=== PATIENT | male | born 1965 | race Caucasian/White ===

== ENCOUNTER 2017-02-28 09:55 | Day surgery (SDC) | payer BC ==
[2017-02-23 16:23] VITALS: BMI 30.4
[2017-02-28] MEDS ORDERED: SODIUM CHLORIDE 0.9% 500 ML IV ONE (10:21)
[2017-02-28 10:24] VITALS: TEMP 98.5
[2017-02-28] MEDS ORDERED: MIDAZOLAM 2 MG/2 ML VIAL ONE (11:15)
[2017-02-28] MEDS ORDERED: fentaNYL (PF) 50 MCG/ML 2 ML AMP ONE (11:15)
[2017-02-28] MEDS: BENZOCAINE SPRAY 100 APPLIC/CAN MUCOUS MEM ONE ×2 (11:23→11:36)
[2017-02-28] MEDS: MIDAZOLAM 2 MG/2 ML VIAL IV ONE ×4 (11:27→11:43)
[2017-02-28] MEDS ORDERED: fentaNYL (PF) 50 MCG/ML 2 ML AMP IV ONE (11:36)
[2017-02-28 12:00] VITALS: RESP 16
[2017-02-28] MEDS ORDERED: SODIUM CHLORIDE 0.9% 1,000 ML IV SCH (12:00)
--- NOTE | 2017-02-28 14:09 | P.GSCN ---
History of Present Illness Consult date: 02/28/17 Reason for Consult: Bicuspid aortic valve, recommendations for treatment. Requesting physician: Elke Amaya History of present illness: This 51-year-old gentleman whose been followed by Dr. Amaya of [facility] was brought in today for a transesophageal echocardiogram. Apparently he had an echocardiogram demonstrating bicuspid aortic valve with moderate to severe aortic stenosis. He denied any chest discomfort, orthopnea, paroxysmal nocturnal dyspnea, dyspnea on exertion, edema, palpitations, syncope , or near syncope. Dr. Amaya performed a transesophageal echocardiogram this morning. Dr. Mari from cardiothoracic surgery was consulted for treatment recommendations. Review of Systems 14 point review of systems was completed and was negative except as noted. Past Medical History Past Medical History: Hypertension, Sleep Apnea/CPAP/BIPAP Additional Past Medical History / Comment(s): STATES DOES NOT USE CPAP, STATES HX OF BICUSPID AORTIC VALVE, MURMUR History of Any Multi-Drug Resistant Organisms: None Reported Past Surgical History: Adenoidectomy, Back Surgery Additional Past Surgical History / Comment(s): YOHANA AND SCREWS IN BACK Past Anesthesia/Blood Transfusion Reactions: No Reported Reaction Smoking Status: Never smoker - Past Family History Mother Family Medical History: No Reported History Medications and Allergies Home Medications Medication Instructions Recorded Confirmed Type Aspirin [Adult Low Dose Aspirin EC] 81 mg PO DAILY 02/23/17 02/28/17 History Lisinopril [Zestril] 20 mg PO DAILY 02/23/17 02/28/17 History Allergies Allergy/AdvReac Type Severity Reaction Status Date / Time Sulfa (Sulfonamide Allergy Itching Verified 02/23/17 16:16 Antibiotics) codeine AdvReac Nausea & Verified 02/23/17 16:16 Vomiting Surgical - Exam Vital Signs Temp Pulse Resp BP Pulse Ox 98.5 F 68 16 159/88 98 02/28/17 10:22 02/28/17 10:22 02/28/17 10:22 02/28/17 10:22 02/28/17 10:22 - General well developed, well nourished, no distress - Eyes PERRL, normal ocular movement - ENT no hearing loss - Neck trachea midline - Respiratory normal expansion, normal respiratory effort, clear to auscultation - Cardiovascular Rhythm: regular Heart Sounds: normal: S1, S2 - Abdomen Abdomen: soft, non tender, bowel sounds - Genitourinary Deferred - Rectum Deferred - Integumentary no rash, no growths - Neurologic normal coordination, normal sensation - Musculoskeletal normal gait, normal posture - Psychiatric oriented to time, oriented to person, oriented to place, speech is normal, memory intact Results - Imaging Additional studies: Echocardiogram results reviewed. Assessment and Plan (1) Bicuspid aortic valve Status: Acute (2) Hypertension Status: Acute Plan: The patient was seen and examined at the bedside. Chart/diagnostics reviewed. A long discussion was had between Dr. Mari and Dr. Amaya regarding the results of the patient's transesophageal echocardiogram. At this time our recommendation would be for the patient to be started on and continue with beta maria isabel therapy and routine echocardiograms every 4 months. This was discussed with Dr. Amaya as well as the patient and his and all are in agreement. He does understand that he will need aortic valve surgery in the future.He was instructed to contact cardiology and our office if he should become symptomatic. Dr. Mari's business card was given to the patient. Thank you Dr. Amaya for this consult. We look forward to working with you in the care of your patient. Time with Patient: Greater than 30
[2017-02-28 14:55] VITALS: BP 143/77; PULSE 67
--- NOTE | 2017-03-02 20:42 | ECHOT ---
This transesophageal echocardiogram was performed to evaluate the patient's bicuspid aortic valve and aortic stenosis. Patient was given intravenous sedation with Versed and fentanyl and transesophageal echocardiogram was performed without any complications. Left ventricular chamber is normal in size with normal left ventricular systolic function. Mitral valve morphology is normal. There is minimal mitral valve prolapse noted. Left atrium is normal in size. Left atrial appendage is normal. Aortic valve is thickened and calcified and it is bicuspid. Aortic valve area was ( ) multiple planimeter examinations and average valve area was in the range of 1 to 1.1 sq cm. The peak gradient across the aortic valve is about 60 to 64 mmHg. There is mild aortic regurgitation noted. Tricuspid valve morphology is normal. Ascending aorta as well as descending thoracic aorta is normal. Interatrial septum is intact. There is no evidence of any PFO. FINAL IMPRESSION: 1. There is evidence of bicuspid calcified aortic valve. The peak gradient by transthoracic was 64 mmHg. Aortic valve area calculated by planimeter is about 1 sq cm, suggestive of severe aortic stenosis. 2. There is mild aortic regurgitation. Ascending aorta is normal. 3. Mitral and tricuspid valve morphology is normal. 4. There is no evidence of PFO. RECOMMENDATIONS: We will have a surgical evaluation of the patient. If he is considered a candidate for aortic valve replacement, then we will evaluate the patient with cardiac catheterization. This was discussed with the patient and family members. [facility] HOSPITALSingh
== END 2017-02-28 14:05 | disposition home or self-care (01) ==
LOC: CATHCVL 09:55
PROVIDERS: ATTEND Internal Medicine Cardiovascular Disease
DX: Q23.1 Congenital insufficiency of aortic valve (principal); I10 Essential (primary) hypertension; G47.30 Sleep apnea, unspecified; Z79.82 Long term (current) use of aspirin; Z79.899 Other long term (current) drug therapy; Z88.2 Allergy status to sulfonamides
CPT/HCPCS: 93312; 93320; 93325; J2250; J3010

== ENCOUNTER → 2018-01-18 | Outpatient (CLI) | payer BC ==
[2018-01-18 10:14] LABS: Blood Urea Nitrogen 21 mg/dL (9-20)
== END ==
LOC: LABWHC1 09:29
PROVIDERS: ATTEND Physical Medicine & Rehabilitation
DX: M54.5 Low back pain (principal); M47.27 Other spondylosis with radiculopathy, lumbosacral region; Z98.890 Other specified postprocedural states
CPT/HCPCS: 36415; 82565; 84520

== ENCOUNTER → 2020-04-14 | Day surgery (SDC) | payer BC ==
[2020-04-08 11:03] VITALS: BMI 32.4
[~2020-04-14] MED LIST: ALPRAZolam 0.25 MG TAB PO PRN; ALPRAZolam 0.5 MG TAB PO PRN; ASPIRIN 325 MG TAB PO STA; ATORVASTATIN 80 MG TAB PO STA; BENZOCAINE SPRAY 1 CAN TOPICAL ONE; HYDROmorphone 1 MG/ML 1 ML SYRINGE IVP ONE; IOPAMIDOL-370 100ML BTL INJ ONE; IOPAMIDOL-370 50ML BTL INJ ONE; LIDOCAINE 1% INJ 10MG/ML (20 ML MDV) ONE; LIDOCAINE 1% INJ 10MG/ML (20 ML MDV) SQ ONE; MIDAZOLAM 2 MG/2 ML VIAL IVP ONE; NITROGLYCERIN SL TABS 0.4 MG TAB SUBLINGUAL PRN; RX INFO: IV CONTRAST WAS GIVEN 1 EACH MISC MISCELLANE PRN; SODIUM CHLORIDE 0.9% 1,000 ML IV ONE; SODIUM CHLORIDE 0.9% 1,000 ML IV SCH; SODIUM CHLORIDE 0.9% 1,000 ML in EMPTY BAG 1 BAG IV ONE; fentaNYL (PF) 50 MCG/ML 2 ML AMP IVP ONE; fentaNYL (PF) 50 MCG/ML 2 ML AMP ONE
[2020-04-14 08:27] VITALS: TEMP 98.1
[2020-04-14 09:29] VITALS: RESP 12
--- NOTE | 2020-04-14 11:36 | CC ---
CARDIAC CATHETERIZATION REPORT INDICATION: Severe aortic stenosis. PROCEDURE NOTE: After obtaining informed consent, left heart catheterization, coronary angiogram and aortogram were performed via the right femoral artery using standard Abdirizak catheters. Right coronary artery was engaged using a leola catheter. FINDINGS: 1. HEMODYNAMICS: Central aortic pressure is 130/70 mm. 2. LEFT VENTRICULOGRAM: Left ventriculogram was not performed. 3. AORTOGRAM: Aortogram was performed to rule out aortic aneurysm. The ascending aorta appears prominent but I do not see any significant aneurysm. 4. FLUOROSCOPY: We see a bicuspid aortic valve that is heavily calcified. ANGIOGRAPHIC DATA: LEFT MAIN CORONARY ARTERY: Left main coronary artery is a normal-sized vessel and is free of stenosis. Divides into left anterior descending coronary artery and circumflex coronary artery. LAD and its branches are free of significant stenosis. Circumflex coronary artery shows a 30%-40% block in its proximal portion. Right coronary artery is a nondominant vessel that shows mild nonobstructive PAD. CONCLUSION: Mild to moderate nonobstructive atherosclerotic plaque involving the large circumflex coronary arteries. PLAN: The patient will be referred for aortic valve replacement. Patient received moderate conscious sedation. Total sedation time for the cardiac cath was 22 minutes. TRANSESOPHAGEAL ECHO: INDICATION: Severe aortic stenosis. PROCEDURE NOTE: After obtaining informed consent, transesophageal echocardiogram is performed in left lateral position using an Omni plane probe. Local and IV sedation were obtained using Xylocaine spray, 3 mg of Versed and 50 mcg of fentanyl. Patient tolerated the procedure well without any obvious immediate complication. Patient received moderate conscious sedation. Total sedation time was about 7 minutes. FINDINGS: 1. AORTIC VALVE: Aortic valve is a bicuspid valve that is heavily calcified with severe restriction in leaflet mobility. We could not accurately planimetry the aortic valve. The valve that is heavily calcified. There is no significant aortic regurgitation. 2. Mitral valve shows mild mitral regurgitation. Tricuspid valve appears anatomically normal. 3. Interatrial septum. There is no evidence of [id number] shunt by color-flow Doppler or [id number]-[id number] shunt by agitated saline contrast study. 4. Left ventricle has normal size and systolic function. 5. Aortic dimensions measure normally. 6. Left atrium, right atrium, right ventricle re within normal limits. CONCLUSION: 1. Bicuspid aortic valve that is heavily calcified with severe restriction in leaflet mobility consistent with a diagnosis of severe aortic stenosis. 2. Normal LV systolic function. PLAN: Patient will undergo cardiac catheterization. He will be referred for aortic valve replacement. MMODL / IJN: [id number] /
--- NOTE | 2020-04-14 11:57 | LTR ---
DATE OF SERVICE: 04/14/2020 RE: Rowdy Turner Dear Lula: I performed cardiac catheterization and transesophageal echo on Rowdy , the detailed reports are enclosed for your records. The cardiac catheterization reveals mild to moderate disease involving the large dominant circumflex coronary artery that does not require revascularization. LESIA confirmed severe aortic stenosis and patient will be referred for aortic valve replacement. The patient is going to pick and chose the surgeon and the place of surgery. Thank you for giving us the privilege to participate in the caring of this gentleman. Sincerely yours, MD DEBORA Garcia / SHIRA: [id number] /
[2020-04-14 15:49] VITALS: BP 113/69; PULSE 64
== END ==
LOC: CATHCVL 08:01
PROVIDERS: ATTEND Internal Medicine Cardiovascular Disease
DX: Q23.1 Congenital insufficiency of aortic valve (principal); I25.10 Atherosclerotic heart disease of native coronary artery without angina pectoris; I10 Essential (primary) hypertension; Z79.82 Long term (current) use of aspirin; Z79.899 Other long term (current) drug therapy; Z88.5 Allergy status to narcotic agent; Z88.2 Allergy status to sulfonamides
CPT/HCPCS: 93312; 93325; 93454; 93567; C1769 ×2; C1760; C1894; J2250; J2001; J3010; J1170; Q9967 ×2

== ENCOUNTER 2022-08-11 09:51 | Inpatient (IN) | payer BC ==
--- NOTE | 2022-08-11 10:02 | ED ---
General Adult HPI - General Chief complaint: Shortness of Breath Stated complaint: Cardiac Time Seen by Provider: 08/11/22 09:55 Source: patient, EMS, RN notes reviewed Mode of arrival: EMS Limitations: no limitations - History of Present Illness Initial comments: Patient is a pleasant 6-year-old male presenting to the emergency department by EMS with concern for dysrhythmia. Patient was pushing his car after running out of gas. Patient felt lightheaded and near syncopal. Patient did lay down or no trauma. No syncopal. Patient still has palpitations. No history of similar symptoms previously. Patient does have history of heart valve surgery, Ross procedure. No history of similar symptoms previously. - Related Data Home Medications Medication Instructions Recorded Confirmed Aspirin [Adult Low Dose Aspirin EC] 81 mg PO DAILY 02/23/17 04/14/20 lisinopriL [Zestril] 20 mg PO DAILY 02/23/17 04/14/20 Multivitamins, Thera [Multivitamin 1 tab PO DAILY 04/08/20 04/14/20 (formulary)] Performa X 1 tab PO DAILY 04/08/20 flaxseed oiL [Flaxseed Oil] 1,000 mg PO DAILY 04/08/20 04/14/20 Allergies Allergy/AdvReac Type Severity Reaction Status Date / Time Sulfa (Sulfonamide Allergy Itching Verified 08/11/22 09:59 Antibiotics) codeine AdvReac Nausea & Verified 08/11/22 09:59 Vomiting Review of Systems ROS Statement: Those systems with pertinent positive or pertinent negative responses have been documented in the HPI. ROS Other: All systems not noted in ROS Statement are negative. Constitutional: Denies: fever Eyes: Denies: eye pain ENT: Denies: ear pain Respiratory: Reports: as per HPI, dyspnea. Denies: cough Cardiovascular: Reports: as per HPI, palpitations. Denies: chest pain Endocrine: Reports: fatigue Gastrointestinal: Denies: abdominal pain Genitourinary: Denies: dysuria Musculoskeletal: Denies: back pain Skin: Denies: rash Neurological: Denies: weakness Past Medical History Past Medical History: Hypertension, Sleep Apnea/CPAP/BIPAP Additional Past Medical History / Comment(s): STATES DOES NOT USE CPAP, STATES HX OF BICUSPID AORTIC VALVE, MURMUR History of Any Multi-Drug Resistant Organisms: None Reported Past Surgical History: Adenoidectomy, Back Surgery Additional Past Surgical History / Comment(s): YOHANA AND SCREWS IN BACK Past Anesthesia/Blood Transfusion Reactions: No Reported Reaction Past Psychological History: No Psychological Hx Reported Smoking Status: Never smoker Past Alcohol Use History: None Reported Past Drug Use History: None Reported - Past Family History Mother Family Medical History: No Reported History General Exam Limitations: no limitations General appearance: alert Head exam: Present: atraumatic Eye exam: Present: normal appearance Neck exam: Present: normal inspection Respiratory exam: Present: normal lung sounds bilaterally Cardiovascular Exam: Present: tachycardia Expanded Peripheral pulses: 2+: Radial (R), Radial (L), Posterior Tibialis (R), Posterior Tibialis (L) GI/Abdominal exam: Present: soft. Absent: tenderness Extremities exam: Present: normal inspection. Absent: pedal edema, calf tenderness Neurological exam: Present: alert Psychiatric exam: Present: normal affect, normal mood Skin exam: Present: normal color Course Vital Signs 08/11/22 09:52 Temperature 97.2 F L Pulse Rate 227 H Respiratory 20 Rate Blood Pressure 122/81 O2 Sat by Pulse 99 Oximetry - Reevaluation(s) Reevaluation #1: 08/11/22 10:01 Cardiology, Dr. Monahan has been paged 08/11/22 10:23 Case was discussed with practitioner Mame with cardiology who states they will evaluate patient. Patient has converted. Patient reevaluated and states he feels much better. Repeat EKG interpreted by myself: Sinus rhythm rate 87. For screening AV block AR 220. QRS 104. QT 365. QTC 409. Left axis. Incomplete right bundle-branch block. Borderline lateral ST depression. 08/11/22 10:53 Case was discussed with Dr. Middleton, who will admit. EKG Findings - EKG Results: EKG: interpreted by ERMD EKG shows: ventricular tachycardia (Wide-complex tachycardia rate 229. Normal axis. Wide QRS complex. Nonspecific ST-T.) Medical Decision Making - Medical Decision Making Patient reevaluated. Patient doing much better. Patient and family updated. Dr. Thompson has been paged for admission, covering Dr. Joy. - Lab Data Result diagrams: 08/11/22 10:09 08/11/22 10:09 Lab Results 12/09/22 12/09/22 12/09/22 Range/Units 10:09 10:09 10:09 WBC 12.4 H (3.8-10.6) k/uL RBC 5.51 (4.30-5.90) m/uL Hgb 17.7 H (13.0-17.5) gm/dL Hct 52.2 (39.0-53.0) % MCV 94.8 (80.0-100.0) fL MCH 32.1 (25.0-35.0) pg MCHC 33.9 (31.0-37.0) g/dL RDW 11.7 (11.5-15.5) % Plt Count 188 (150-450) k/uL MPV 10.3 Sodium 137 (137-145) mmol/L Potassium 4.4 (3.5-5.1) mmol/L Chloride 102 (98-107) mmol/L Carbon Dioxide 17 L (22-30) mmol/L Anion Gap 18 mmol/L BUN 21 H (9-20) mg/dL Creatinine 1.09 (0.66-1.25) mg/dL Est GFR (CKD-EPI)AfAm 88 (>60 ml/min/1.73 sqM) Est GFR (CKD-EPI)NonAf 76 (>60 ml/min/1.73 sqM) Glucose 308 H (74-99) mg/dL Calcium 9.1 (8.4-10.2) mg/dL Magnesium 2.2 (1.6-2.3) mg/dL Total Bilirubin 1.1 (0.2-1.3) mg/dL AST 67 H (17-59) U/L ALT 58 H (4-49) U/L Alkaline Phosphatase 73 (38-126) U/L Troponin I <0.012 (0.000-0.034) ng/mL Total Protein 7.3 (6.3-8.2) g/dL Albumin 4.5 (3.5-5.0) g/dL - Radiology Data Interpreted by me: Chest x-ray shows cardiomegaly. Postoperative change. No acute process. Critical Care Time Critical Care Time: Yes Total Critical Care Time: 34 Disposition Clinical Impression: Ventricular tachycardia Disposition: ADMITTED IP TO THIS HOSP Is patient prescribed a controlled substance at d/c from ED?: No Referrals: None,Stated [REFERRING] - 1-2 days Time of Disposition: 10:50
[2022-08-11 10:17] LABS: Basophils # (A) 0.1 k/uL (0-0.2); Basophils % (A) 1 %; Eosinophils # (A) 0.4 k/uL (0-0.7); Eosinophils % (A) 3 %; HCT 52.2 % (39.0-53.0); HGB 17.7 gm/dL (13.0-17.5); Lymphocytes # (A) 5.2 k/uL (1.0-4.8); Lymphocytes % (A) 42 %; MCH 32.1 pg (25.0-35.0); MCHC 33.9 g/dL (31.0-37.0); MCV 94.8 fL (80.0-100.0); Mean Platelet Volume 10.3; Monocytes # (A) 0.7 k/uL (0-1.0); Monocytes % (A) 6 %; Neutrophils # (A) 5.7 k/uL (1.3-7.7); Neutrophils % (A) 46 %; Platelet Count 188 k/uL (150-450); RBC 5.51 m/uL (4.30-5.90); RDW 11.7 % (11.5-15.5); WBC 12.4 k/uL (3.8-10.6)
[2022-08-11] MEDS ORDERED: DEXTROSE 5% IN WATER 100 ML with AMIODARONE 150 MG IV ONE (10:20)
--- NOTE | 2022-08-11 10:26 | XR ---
EXAMINATION TYPE: XR chest 1V portable DATE OF EXAM: 08/11/2022 COMPARISON: NONE HISTORY: Dysrhythmia. TECHNIQUE: 2 AP portable frontal upright views of the chest are obtained. FINDINGS: Overlying sternal wires are seen. There is no focal air space opacity, pleural effusion, o r pneumothorax seen. The cardiac silhouette size is mildly enlarged. Overlying EKG leads are seen. The osseous structures are intact. IMPRESSION: Mild cardiomegaly without acute pulmonary process.
[2022-08-11] MEDS ORDERED: AMIODARONE 360 MG in DEXTROSE 5% IN WATER 200 ML IV ONE ×2 (10:30)
[2022-08-11 10:35] LABS: Albumin 4.5 g/dL (3.5-5.0); Calcium 9.1 mg/dL (8.4-10.2); Prothrombin Time 10.7 sec (9.0-12.0); Total Bilirubin 1.1 mg/dL (0.2-1.3); Total Protein 7.3 g/dL (6.3-8.2)
[2022-08-11 10:38] LABS: Potassium 4.4 mmol/L (3.5-5.1)
[2022-08-11 10:39] LABS: Magnesium 2.2 mg/dL (1.6-2.3)
[2022-08-11] MEDS ORDERED: ASPIRIN 81 MG PO STA (10:50)
--- NOTE | 2022-08-11 11:03 | P.CRDCN ---
History of Present Illness History of present illness: This is a 56 year old male with a past medical history of bicuspid arotic valve with severe aortic stenosis s/p Ross procedure at [facility] in 2019, mild non- obstructive cororonary artery disease with 30-40% stenosis in the left circumflex by cardiac catheterization in 2020, hypertension. He follows with Dr. Kerr, but has not followed up in 2 years. We have been consulted to see the patient for ventricular tachycardia. Patient presents emergency department secondary to near syncopal episode. He states he unfortunately ran out of gas, he was pushing the car to the corner and he had acute onset lightheadedness, shortness of breath and felt as if he may pass out. He remembers his standing over him and EMS was called. He denies loss of consciousness. Prior to this and the past 2 years after his valve replacement he has had no issues or symptoms. He is very active and has no chest pain or shortness of breath. He was brought to the ER was found to be in sustained ventricular tachycardia. He was started on IV amiodarone He was given 2 IV amiodarone boluses and started on amio drip. He converted back to sinus rhythm with HR 80s. He is alert and oriented x3, stable, no complaints at bedside. DIAGNOSTICS * EKG reveals ventricular tachycardia, HR 229, repeat EKG after conversion, sinus rhythm, first-degree AV block, heart rate 87, incomplete right bundle branch block, mild ST depression V4 through V6 * Telemetry tracings indicate sinus rhythm in the 80s at bedside. Prior to this patient was in sustained ventricular tachycardia * Chest xray mild cardiomegaly without any acute pulmonary process. * Labs pending * Current home cardiac medications include aspirin 80 mg daily, lisinopril 20 mg daily. REVIEW OF SYSTEMS At the time of my exam: CONSTITUTIONAL: Denies fever or chills. CARDIOVASCULAR: Denies chest pain, shortness of breath, orthopnea, PND or palpitations. RESPIRATORY: Denies cough. GASTROINTESTINAL: Denies abdominal pain, diarrhea, constipation, nausea or vomiting. MUSCULOSKELETAL: Denies myalgias. NEUROLOGIC: Denies numbness, tingling, headacbe or weakness. ENDOCRINE: Denies fatigue, weight change, polydipsia or polyurina. GENITOURINARY: Denies burning, hematuria or urgency with micturation. HEMATOLOGIC: Denies history of anemia or bleeding. PHYSICAL EXAMINATION Blood pressure 122/81, heart rate 85, afebrile, saturation 99% on room air CONSTITUTIONAL: No apparent distress. HEENT: Head is normocephalic. Pupils are equal, round. Sclerae anicteric. Mucous membranes of the mouth are moist. No JVD. No carotid bruit. CHEST EXAMINATION: Lungs are clear to auscultation. No chest wall tenderness is noted on palpation or with deep breathing. HEART EXAMINATION: Regular rate and rhythm. S1, S2 heard. No murmurs, gallops or rub. ABDOMEN: Soft, nontender. Positive bowel sounds. EXTREMITIES: 2+ peripheral pulses, no lower extremity edema and no calf tenderness. NEUROLOGIC EXAMINATION: Patient is awake, alert and oriented x3. ASSESSMENT Ventricular tachycardia, s/p IV amiodarone and conversion to sinus rhythm. Likely related to scare tissue from valve surgery Near syncope Hicuspid arotic valve with severe aortic stenosis s/p Ross procedure at [facility] in 2019 Mild non-obstructive cororonary artery disease with 30-40% stenosis in the left circumflex by cardiac catheterization in 2019 History of hypertension PLAN Obtain troponin, CBC, BMP Obtain 2D echocardiogram and doppler study to assess cardiac structure and function. Continue IV amiodarone Further recommendations based on clinical course Nurse practitioner note has been reviewed by physician. Signing provider agrees with the documented findings, assessment, and plan of care. Past Medical History Past Medical History: Hypertension, Sleep Apnea/CPAP/BIPAP Additional Past Medical History / Comment(s): STATES DOES NOT USE CPAP, STATES HX OF BICUSPID AORTIC VALVE, MURMUR History of Any Multi-Drug Resistant Organisms: None Reported Past Surgical History: Adenoidectomy, Back Surgery Additional Past Surgical History / Comment(s): YOHANA AND SCREWS IN BACK Past Anesthesia/Blood Transfusion Reactions: No Reported Reaction Past Psychological History: No Psychological Hx Reported Smoking Status: Never smoker Past Alcohol Use History: None Reported Past Drug Use History: None Reported - Past Family History Mother Family Medical History: No Reported History Medications and Allergies Home Medications Medication Instructions Recorded Confirmed Type Aspirin [Adult Low Dose Aspirin EC] 81 mg PO DAILY 02/23/17 04/14/20 History lisinopriL [Zestril] 20 mg PO DAILY 02/23/17 04/14/20 History Multivitamins, Thera [Multivitamin 1 tab PO DAILY 04/08/20 04/14/20 History (formulary)] Performa X 1 tab PO DAILY 04/08/20 History flaxseed oiL [Flaxseed Oil] 1,000 mg PO DAILY 04/08/20 04/14/20 History Allergies Allergy/AdvReac Type Severity Reaction Status Date / Time Sulfa (Sulfonamide Allergy Itching Verified 08/11/22 09:59 Antibiotics) codeine AdvReac Nausea & Verified 08/11/22 09:59 Vomiting Physical Exam Vitals: Vital Signs Temp Pulse Resp BP Pulse Ox 08/11/22 09:52 97.2 F L 227 H 20 122/81 99 Intake and Output 08/10/22 08/11/22 08/11/22 22:59 06:59 14:59 Other: Weight 102.058 kg Results 08/11/22 10:09 08/11/22 10:09 Current Medications Generic Name Dose Route Start Last Admin Trade Name Freq PRN Reason Stop Dose Admin Amiodarone HCl 150 mg/ 103 mls @ 618 mls/hr 08/11/22 10:20 08/11/22 10:08 Dextrose/Water IV 08/11/22 10:29 618 mls/hr .Q10M ONE Administration Amiodarone HCl 360 mg/ 200 mls @ 33.333 mls/hr 08/11/22 10:30 Dextrose/Water IV 08/11/22 16:29 .Q6H ONE 1 MG/MIN Amiodarone HCl 450 mg/ 250 mls @ 16.667 mls/hr 08/11/22 16:30 Dextrose/Water IV 08/12/22 10:29 .Q15H RASHAUN 0.5 MG/MIN Intake and Output 08/10/22 08/11/22 08/11/22 22:59 06:59 14:59 Other: Weight 102.058 kg Patient Weight 08/12/22 06:59 Weight 102.058 kg
[2022-08-11 11:05] LABS: Partial Thromboplastin Time 19.8 sec (22.0-30.0)
[2022-08-11 11:08] LABS: RBC Morphology Normal
--- NOTE | 2022-08-11 13:11 | CA ---
Transthoracic Echo Report Name: Rowdy Turner Age: 56 Gender: M : 1965 Exam Date: 08/11/2022 11:10 Exam Location: [facility] Ht (in): 72 Wt (lb): 225 Ordering Physician: Mame Lindsay Attending/Referring Phys: Pupil Personnel Services Director Marie Mullins RDCS Procedure CPT: Indications: v tach Cardiac Hx: Technical Quality: Contrast 1: Total Dose (mL): Contrast 2: Total Dose (mL): MEASUREMENTS (Male / Female) Normal Values 2D ECHO LV Diastolic Diameter PLAX 4.4 cm 4.2 - 5.9 / 3.9 - 5.3 cm LV Systolic Diameter PLAX 4.0 cm IVS Diastolic Thickness 1.3 cm 0.6 - 1.0 / 0.6 - 0.9 cm LVPW Diastolic Thickness 1.2 cm 0.6 - 1.0 / 0.6 - 0.9 cm LV Relative Wall Thickness 0.6 LA Systolic Diameter LX 3.3 cm 3.0 - 4.0 / 2.7 - 3.8 cm M-MODE Aortic Root Diameter MM 2.5 cm LA Systolic Diameter MM 3.1 cm LA Ao Ratio MM 1.2 MV E Point Septal Separation 0.3 cm DOPPLER AV Peak Velocity 105.4 cm/s AV Peak Gradient 4.4 mmHg AV Mean Velocity 78.4 cm/s AV Mean Gradient 2.7 mmHg AV Velocity Time Integral 16.6 cm AI Peak Velocity 243.0 cm/s AI Peak Gradient 23.6 mmHg AI Pressure Half Time 268.7 ms LVOT Peak Velocity 86.1 cm/s LVOT Peak Gradient 3.0 mmHg MV Area PHT 3.8 cm??? Mitral E Point Velocity 47.5 cm/s Mitral A Point Velocity 43.2 cm/s Mitral E to A Ratio 1.1 MV Deceleration Time 201.3 ms FINDINGS Left Ventricle Mildly increased septal wall thickness. Left ventricular cavity size at the upper limits of normal. Left ventricular ejection fraction is estimated 55%. Right Ventricle Normal right ventricular size and function. Right ventricular systolic pressure within normal limits. Right Atrium Normal right atrial size. Left Atrium Normal left atrial size. Mitral Valve Structurally normal mitral valve. Mild mitral regurgitation. Aortic Valve Pt had Ross procedure. aortic valve without stenosis with a peak velocity1 of m/s, peak gradient 4.4mmHg, mean gradient2.7 mmHg, mild aortic regurgitation. Tricuspid Valve Structurally normal tricuspid valve. Mild tricuspid regurgitation. Pulmonic Valve Pulmonic valve not well visualized. Mild pulmonic regurgitation. Pericardium Normal pericardium. Aorta Normal size aortic root and proximal ascending aorta. CONCLUSIONS LVH with preserved systolic function Aortic valve has been replaced with the pulmonic valve, normal function Previewed by: Dr. Jacques Lockett MD (Electronically Signed) Final Date: 11 August 2022 13:10
[2022-08-11] MEDS: AMIODARONE 450 MG in DEXTROSE 5% IN WATER 250 ML IV SCH ×2 (16:09)
--- NOTE | 2022-08-11 20:09 | P.HPIM ---
History of Present Illness H&P Date: 08/11/22 Chief Complaint: Syncope 56 year old male with a past medical history of bicuspid arotic valve with severe aortic stenosis s/[facility], mild non-obst ructive cororonary artery disease with 30-40% stenosis in the left circumflex by cardiac catheterization in 2019, hypertension. He follows with Dr. Kerr, but has not followed up in 2 years. We have been consulted to see the patient for ventricular tachycardia. Patient presents emergency department secondary to near syncopal episode. He states he unfortunately ran out of gas, he was pushing the car to the corner and he had acute onset lightheadedness, shortness of breath and felt as if he may pass out. He remembers his standing over him and EMS was called. He denies loss of consciousness. Prior to this and the past 2 years after his valve replacement he has had no issues or symptoms. He is very active and has no chest pain or shortness of breath. He was brought to the ER was found to be in sustained ventricular tachycardia. He was started on IV amiodarone He was given 2 IV amiodarone boluses and started on amio drip. He converted back to sinus rhythm with HR 80s. He is alert and oriented x3, stable, no complaints at bedside. EKG reveals ventricular tachycardia, HR 229, repeat EKG after conversion, sinus rhythm, first-degree AV block, heart rate 87, incomplete right bundle branch block, mild ST depression V4 through V6 Telemetry tracings indicate sinus rhythm in the 80s at bedside. Prior to this patient was in sustained ventricular tachycardia Chest xray mild cardiomegaly without any acute pulmonary process. Labs pending Current home cardiac medications include aspirin 80 mg daily, lisinopril 20 mg daily. Review of Systems CONSTITUTIONAL: Denies fever or chills. CARDIOVASCULAR: Denies chest pain, shortness of breath, orthopnea, PND or palpitations. RESPIRATORY: Denies cough. GASTROINTESTINAL: Denies abdominal pain, diarrhea, constipation, nausea or vomiting. MUSCULOSKELETAL: Denies myalgias. NEUROLOGIC: Denies numbness, tingling, headacbe or weakness. ENDOCRINE: Denies fatigue, weight change, polydipsia or polyurina. GENITOURINARY: Denies burning, hematuria or urgency with micturation. HEMATOLOGIC: Denies history of anemia or bleeding. Past Medical History Past Medical History: Hypertension, Sleep Apnea/CPAP/BIPAP Additional Past Medical History / Comment(s): STATES DOES NOT USE CPAP, STATES HX OF BICUSPID AORTIC VALVE, MURMUR History of Any Multi-Drug Resistant Organisms: None Reported Past Surgical History: Adenoidectomy, Back Surgery Additional Past Surgical History / Comment(s): YOHANA AND SCREWS IN BACK Past Anesthesia/Blood Transfusion Reactions: No Reported Reaction Past Psychological History: No Psychological Hx Reported Smoking Status: Never smoker Past Alcohol Use History: None Reported Past Drug Use History: None Reported - Past Family History Mother Family Medical History: No Reported History Medications and Allergies Home Medications Medication Instructions Recorded Confirmed Type flaxseed oiL [Flaxseed Oil] 1,000 mg PO DAILY 04/08/20 08/11/22 History Cholecalciferol [Vitamin D3 (25 50 mcg PO DAILY 08/11/22 08/11/22 History Mcg = 1000 Iu)] Magnesium 250 mg PO DAILY 08/11/22 08/11/22 History Potassium Gluconate [Potassium 99 mg PO DAILY 08/11/22 08/11/22 History Gluconate ER] Vitamin K2 400 mcg PO DAILY 08/11/22 08/11/22 History Zinc Gluconate [Zinc] 50 mg PO DAILY 08/11/22 08/11/22 History Allergies Allergy/AdvReac Type Severity Reaction Status Date / Time Sulfa (Sulfonamide Allergy Itching Verified 08/11/22 11:25 Antibiotics) codeine AdvReac Nausea & Verified 08/11/22 11:25 Vomiting Physical Exam Vitals: Vital Signs Temp Pulse Resp BP Pulse Ox 08/11/22 12:22 83 18 125/77 96 08/11/22 10:20 82 18 115/68 97 08/11/22 09:52 97.2 F L 227 H 20 122/81 99 Intake and Output 08/10/22 08/11/22 08/11/22 22:59 06:59 14:59 Other: Weight 102.058 kg Blood pressure 122/81, heart rate 85, afebrile, saturation 99% on room air CONSTITUTIONAL: No apparent distress. HEENT: Head is normocephalic. Pupils are equal, round. Sclerae anicteric. Mucous membranes of the mouth are moist. No JVD. No carotid bruit. CHEST EXAMINATION: Lungs are clear to auscultation. No chest wall tenderness is noted on palpation or with deep breathing. HEART EXAMINATION: Regular rate and rhythm. S1, S2 heard. No murmurs, gallops or rub. ABDOMEN: Soft, nontender. Positive bowel sounds. EXTREMITIES: 2+ peripheral pulses, no lower extremity edema and no calf tenderness. NEUROLOGIC EXAMINATION: Patient is awake, alert and oriented x3. Results CBC & Chem 7: 08/11/22 10:09 08/11/22 10:09 Labs: Abnormal Lab Results - Last 24 Hours (Table) 08/11/22 08/11/22 08/11/22 Range/Units 10:09 10:09 10:09 WBC 12.4 H (3.8-10.6) k/uL Hgb 17.7 H (13.0-17.5) gm/dL Lymphocytes # 5.2 H (1.0-4.8) k/uL APTT 19.8 L (22.0-30.0) sec Carbon Dioxide 17 L (22-30) mmol/L BUN 21 H (9-20) mg/dL Glucose 308 H (74-99) mg/dL AST 67 H (17-59) U/L ALT 58 H (4-49) U/L Troponin I (0.000-0.034) ng/mL 08/11/22 Range/Units 11:17 WBC (3.8-10.6) k/uL Hgb (13.0-17.5) gm/dL Lymphocytes # (1.0-4.8) k/uL APTT (22.0-30.0) sec Carbon Dioxide (22-30) mmol/L BUN (9-20) mg/dL Glucose (74-99) mg/dL AST (17-59) U/L ALT (4-49) U/L Troponin I 0.101 H* (0.000-0.034) ng/mL Assessment and Plan Assessment: 1. Sustained ventricular tachycardia; likely related to scar tissue from valve surgery - patient was placed on IV amiodarone bolus and infusion and converted spontaneously - Cardiology recommending to continue with IV amiodarone and monitor EKG and trend troponin and further recommendations after 2-D echocardiogram is completed 2. Hypertension; lisinopril 20 mg daily 3. Sleep apnea; patient uses CPAP at home 4. History of bicuspid aortic valve/severe aortic stenosis; status post Ross procedure in 2020 5. Coronary artery disease; history of mild nonobstructive disease with 30-40% stenosis in left circumflex artery based on cardiac catheterization completed in 2019 DVT prophylaxis; SCDs CODE STATUS; full code
[2022-08-12] MEDS: AMIODARONE 450 MG in DEXTROSE 5% IN WATER 250 ML IV SCH ×2 (06:09)
--- NOTE | 2022-08-12 06:30 | P.PN ---
Subjective Progress Note Date: 08/12/22 Principal diagnosis: Sustained ventricular tachycardia The patient is a pleasant 56-year-old gentleman with a past medical history significant for valvular heart disease where he underwent 2 years ago Ross procedure at the [facility] was admitted to the hospital with a presyncope associated with heart racing and fluttering and he was found to be in sustained ventricular tachycardia documented in the chart. He is also known to have history of cardiomyopathy and mild nonobstructive coronary artery disease. Further investigation was performed including echo which revealed preserved left ventricular systolic function with mild gradient across aortic valve and mild aortic insufficiency and mild pulmonic insufficiency August 122021 The patient was seen and evaluated this morning. He is asymptomatic. He has been maintaining sinus mechanism was no more episodes of sustained V. tach. His troponin was slightly elevated likely secondary to V. tach. Currently he is on amiodarone IV which went to switch to amiodarone by mouth. Start the patient on Toprol-XL. Consult electrophysiology for possible secondary prevention with AICD. Further recommendation to follow Objective - Vital Signs Vital signs: Vital Signs Temp 97.2 F L 08/11/22 09:52 Pulse 62 08/12/22 04:00 Resp 19 08/12/22 04:00 BP 154/83 08/12/22 04:00 Pulse Ox 97 08/12/22 04:00 FiO2 Intake & Output 08/11/22 08/11/22 08/12/22 06:59 18:59 06:59 Intake Total 233.338 Balance 233.338 Weight 102.058 kg 102.058 kg Intake: Intake, IV Titration 233.338 Amount Amiodarone 450 mg In 233.338 Dextrose 5% in Water 250 ml @ 0.5 MG/MIN 16.667 mls/hr IV .Q15H [facility] Rx#: [id number] Other: # Voids 2 - Constitutional General appearance: Present: no acute distress - Respiratory Respiratory: bilateral: CTA - Cardiovascular Rhythm: regular - Labs CBC & Chem 7: 08/11/22 10:09 08/11/22 10:09 Labs: Abnormal Lab Results - Last 24 Hours (Table) 08/11/22 08/11/22 08/11/22 Range/Units 10:09 10:09 10:09 WBC 12.4 H (3.8-10.6) k/uL Hgb 17.7 H (13.0-17.5) gm/dL Lymphocytes # 5.2 H (1.0-4.8) k/uL APTT 19.8 L (22.0-30.0) sec Carbon Dioxide 17 L (22-30) mmol/L BUN 21 H (9-20) mg/dL Glucose 308 H (74-99) mg/dL AST 67 H (17-59) U/L ALT 58 H (4-49) U/L Troponin I (0.000-0.034) ng/mL 08/11/22 08/11/22 Range/Units 11:17 15:48 WBC (3.8-10.6) k/uL Hgb (13.0-17.5) gm/dL Lymphocytes # (1.0-4.8) k/uL APTT (22.0-30.0) sec Carbon Dioxide (22-30) mmol/L BUN (9-20) mg/dL Glucose (74-99) mg/dL AST (17-59) U/L ALT (4-49) U/L Troponin I 0.101 H* 0.423 H* (0.000-0.034) ng/mL Assessment and Plan Assessment: Assessment Status post Ross procedure Systemic ventricular tachycardia Plan DC amiodarone IV and start the patient on amiodarone by mouth Start the patient on Toprol-XL Follow-up with the patient
[2022-08-12] MEDS: AMIODARONE 200 MG TAB PO SCH ×2 (08:43→19:49)
[2022-08-12] MEDS: POTASSIUM CHLORIDE ER 10 MEQ TAB.ER.PRT PO SCH (08:43)
[2022-08-12] MEDS: ASPIRIN 81 MG PO SCH (08:43)
[2022-08-12] MEDS: METOPROLOL SUCCINATE (ER) 25 MG TAB.ER.24H PO SCH (08:43)
[2022-08-12] MEDS: MAGNESIUM OXIDE 400 MG TAB PO SCH (08:43)
[2022-08-12] MEDS: ZINC SULFATE 220 MG CAP PO SCH (08:44)
[2022-08-12] MEDS: CHOLECALCIFEROL 25 MCG (1000 IU) TABLET PO SCH (08:44)
[2022-08-12 10:12] LABS: African American GFR (CKD) >90 (>60 ml/min/1.73 sqM); Anion Gap 11 mmol/L; Blood Urea Nitrogen 17 mg/dL (9-20); Calcium 9.4 mg/dL (8.4-10.2); Carbon Dioxide 22 mmol/L (22-30); Chloride 105 mmol/L (98-107); Glucose 136 mg/dL (74-99); Non-African American GFR(CKD) >90 (>60 ml/min/1.73 sqM); Potassium 4.2 mmol/L (3.5-5.1); Sodium 138 mmol/L (137-145)
[2022-08-12 16:49] LABS: Chol/HDL Ratio 5.07 Ratio; LDL Cholesterol,Calculated 146.3 mg/dL (0.0-131.0)
--- NOTE | 2022-08-13 06:39 | P.PN ---
Subjective Progress Note Date: 08/13/22 Principal diagnosis: Sustained ventricular tachycardia The patient is a pleasant 56-year-old gentleman with a past medical history significant for valvular heart disease where he underwent 2 years ago Ross procedure at the [facility] was admitted to the hospital with a presyncope associated with heart racing and fluttering and he was found to be in sustained ventricular tachycardia documented in the chart. He is also known to have history of cardiomyopathy and mild nonobstructive coronary artery disease. Further investigation was performed including echo which revealed preserved left ventricular systolic function with mild gradient across aortic valve and mild aortic insufficiency and mild pulmonic insufficiency August 122021 The patient was seen and evaluated this morning. He is asymptomatic. He has been maintaining sinus mechanism was no more episodes of sustained V. tach. His troponin was slightly elevated likely secondary to V. tach. Currently he is on amiodarone IV which went to switch to amiodarone by mouth. Start the patient on Toprol-XL. Consult electrophysiology for possible secondary prevention with AICD. Further recommendation to follow August 132021 The patient was seen and evaluated this morning. He has no more episode of ventricular tachycardia throughout his hospital stay. He is asymptomatic. He is hemodynamically stable as well. I advised the patient to stay overnight to be seen tomorrow by Dr. Lockett for further evaluation of an AICD for secondary prevention that the patient would like to go home and see him as an outpatient. He sees Dr. Kerr in the office on a regular basis [place]. Objective - Vital Signs Vital signs: Vital Signs Temp 98.7 F 08/12/22 16:19 Pulse 64 08/13/22 04:00 Resp 19 08/13/22 04:00 BP 133/67 08/13/22 04:00 Pulse Ox 99 08/13/22 04:00 FiO2 Intake & Output 08/12/22 08/12/22 08/13/22 06:59 18:59 06:59 Intake Total 233.338 340 Balance 233.338 340 Weight 102.058 kg Intake: Intake, IV Titration 233.338 0 Amount Amiodarone 360 mg In 0 Dextrose 5% in Water 200 ml @ 1 MG/MIN 33.333 mls/ hr IV .Q6H [facility] Rx#: [id number] Amiodarone 450 mg In 233.338 Dextrose 5% in Water 250 ml @ 0.5 MG/MIN 16.667 mls/hr IV .Q15H [facility] Rx#: [id number] Oral 340 Other: # Voids 2 1 - Constitutional General appearance: Present: no acute distress - Respiratory Respiratory: bilateral: CTA - Cardiovascular Rhythm: regular - Labs CBC & Chem 7: 08/11/22 10:09 12 09:22 Labs: Abnormal Lab Results - Last 24 Hours (Table) 08/12/22 Range/Units 09:22 Glucose 136 H (74-99) mg/dL Triglycerides 280.00 H (0.00-149.00) mg/dL Cholesterol 252.00 H (0.00-200.00) mg/dL LDL Cholesterol, Calc 146.3 H (0.0-131.0) mg/dL VLDL Cholesterol, Calc 56.00 H (5.00-40.00) mg/dL Assessment and Plan Assessment: Assessment Status post Ross procedure Systemic ventricular tachycardia Plan Continue the current dose of amiodarone by mouth Continue current dose of Toprol-XL The patient would like to go home and sees his catering associate and discuss the AICD as an out patient
[2022-08-13] MEDS: POTASSIUM CHLORIDE ER 10 MEQ TAB.ER.PRT PO SCH (08:59)
[2022-08-13] MEDS: ZINC SULFATE 220 MG CAP PO SCH (08:59)
[2022-08-13] MEDS: METOPROLOL SUCCINATE (ER) 25 MG TAB.ER.24H PO SCH (09:00)
[2022-08-13] MEDS: MAGNESIUM OXIDE 400 MG TAB PO SCH (09:00)
[2022-08-13] MEDS: ASPIRIN 81 MG PO SCH (09:00)
[2022-08-13] MEDS: AMIODARONE 200 MG TAB PO SCH (09:00)
[2022-08-13] MEDS: CHOLECALCIFEROL 25 MCG (1000 IU) TABLET PO SCH (09:00)
[2022-08-13 09:28] VITALS: RESP 20
[2022-08-13 11:28] VITALS: BP 156/91; PULSE 66; TEMP 98.7
--- NOTE | 2022-08-13 14:17 | P.PN ---
Subjective Progress Note Date: 08/12/22 56 year old male with a past medical history of bicuspid arotic valve with severe aortic stenosis s/[facility], mild non- obstructive cororonary artery disease with 30-40% stenosis in the left circumflex by cardiac catheterization in 2019, hypertension. He follows with Dr. Kerr, but has not followed up in 2 years. We have been consulted to see the patient for ventricular tachycardia. Patient presents emergency department secondary to near syncopal episode. He states he unfortunately ran out of gas, he was pushing the car to the corner and he had acute onset lightheadedness, shortness of breath and felt as if he may pass out. He remembers his standing over him and EMS was called. He denies loss of consciousness. Prior to this and the past 2 years after his valve replacement he has had no issues or symptoms. He is very active and has no chest pain or shortness of breath. He was brought to the ER was found to be in sustained ventricular tachycardia. He was started on IV amiodarone He was given 2 IV amiodarone boluses and started on amio drip. He converted back to sinus rhythm with HR 80s. He is alert and oriented x3, stable, no complaints at bedside. EKG reveals ventricular tachycardia, HR 229, repeat EKG after conversion, sinus rhythm, first-degree AV block, heart rate 87, incomplete right bundle branch block, mild ST depression V4 through V6 Telemetry tracings indicate sinus rhythm in the 80s at bedside. Prior to this patient was in sustained ventricular tachycardia Chest xray mild cardiomegaly without any acute pulmonary process. Labs pending Current home cardiac medications include aspirin 80 mg daily, lisinopril 20 mg daily. Objective - Vital Signs Vital signs: Vital Signs Temp 97.9 F 08/12/22 11:37 Pulse 83 08/12/22 11:37 Resp 20 08/12/22 11:37 BP 161/98 08/12/22 11:37 Pulse Ox 96 08/12/22 11:37 FiO2 Intake & Output 08/11/22 08/12/22 08/12/22 18:59 06:59 18:59 Intake Total 233.338 Balance 233.338 Weight 102.058 kg 102.058 kg Intake: Intake, IV Titration 233.338 Amount Amiodarone 450 mg In 233.338 Dextrose 5% in Water 250 ml @ 0.5 MG/MIN 16.667 mls/hr IV .Q15H [facility] Rx#: [id number] Other: # Voids 2 - Exam Blood pressure 122/81, heart rate 85, afebrile, saturation 99% on room air CONSTITUTIONAL: No apparent distress. HEENT: Head is normocephalic. Pupils are equal, round. Sclerae anicteric. Mucous membranes of the mouth are moist. No JVD. No carotid bruit. CHEST EXAMINATION: Lungs are clear to auscultation. No chest wall tenderness is noted on palpation or with deep breathing. HEART EXAMINATION: Regular rate and rhythm. S1, S2 heard. No murmurs, gallops or rub. ABDOMEN: Soft, nontender. Positive bowel sounds. EXTREMITIES: 2+ peripheral pulses, no lower extremity edema and no calf tenderness. NEUROLOGIC EXAMINATION: Patient is awake, alert and oriented x3. - Labs CBC & Chem 7: 08/11/22 10:09 08/12/22 09:22 Labs: Abnormal Lab Results - Last 24 Hours (Table) 08/11/22 08/11/22 08/12/22 Range/Units 11:17 15:48 09:22 Glucose 136 H (74-99) mg/dL Troponin I 0.101 H* 0.423 H* (0.000-0.034) ng/mL Assessment and Plan Assessment: 1. Sustained ventricular tachycardia; likely related to scar tissue from valve surgery - patient was placed on IV amiodarone bolus and infusion and converted spontaneously - Cardiology recommending to continue with IV amiodarone and monitor EKG and trend troponin and further recommendations after 2-D echocardiogram is completed 2. Hypertension; lisinopril 20 mg daily 3. Sleep apnea; patient uses CPAP at home 4. History of bicuspid aortic valve/severe aortic stenosis; status post Ross procedure in 2019 5. Coronary artery disease; history of mild nonobstructive disease with 30-40% stenosis in left circumflex artery based on cardiac catheterization completed in 2019 DVT prophylaxis; SCDs CODE STATUS; full code
--- NOTE | 2022-08-13 14:19 | P.DS ---
Providers Date of admission: 08/11/22 10:52 Expected date of discharge: 08/13/22 Attending physician: Renea Herrera Consults: 08/11/22 10:50 Consult Physician Urgent Consulting Provider: Shawn Monahan Consult Reason/Comments: v tach Do you want consulting provider notified?: Already Contacted Primary care physician: [facility] Hospital Course: 56 year old male with a past medical history of bicuspid arotic valve with severe aortic stenosis s/[facility], mild non- obstructive cororonary artery disease with 30-40% stenosis in the left circumflex by cardiac catheterization in 2019, hypertension. He follows with Dr. Kerr, but has not followed up in 2 years. We have been consulted to see the patient for ventricular tachycardia. Patient presents emergency department secondary to near syncopal episode. He states he unfortunately ran out of gas, he was pushing the car to the corner and he had acute onset lightheadedness, shortness of breath and felt as if he may pass out. He remembers his standing over him and EMS was called. He denies loss of consciousness. Prior to this and the past 2 years after his valve replacement he has had no issues or symptoms. He is very active and has no chest pain or shortness of breath. He was brought to the ER was found to be in sustained ventricular tachycardia. He was started on IV amiodarone He was given 2 IV amiodarone boluses and started on amio drip. He converted back to sinus rhythm with HR 80s. He is alert and oriented x3, stable, no complaints at bedside. EKG reveals ventricular tachycardia, HR 229, repeat EKG after conversion, sinus rhythm, first-degree AV block, heart rate 87, incomplete right bundle branch block, mild ST depression V4 through V6 Telemetry tracings indicate sinus rhythm in the 80s at bedside. Prior to this patient was in sustained ventricular tachycardia Chest xray mild cardiomegaly without any acute pulmonary process. Labs pending Current home cardiac medications include aspirin 80 mg daily, lisinopril 20 mg daily. Cardiology evaluated patient Status post Ross procedure Systemic ventricular tachycardia Plan DC amiodarone IV and start the patient on amiodarone by mouth Start the patient on Toprol-XL Patient was recommended to stay in the hospital till evaluation by EP for AICD implantation for secondary prevention; patient requesting to be discharged and will follow-up with primary environmental remediation consultant for referral to EP Plan - Discharge Summary Discharge Rx Participant: No New Discharge Prescriptions: New Metoprolol Succinate (ER) [Toprol XL] 25 mg PO DAILY 30 Days #30 tab Aspirin 81 mg PO DAILY tab Amiodarone [Cordarone] 400 mg PO BID 10 Days #20 tab Continue flaxseed oiL [Flaxseed Oil] 1,000 mg PO DAILY Zinc Gluconate [Zinc] 50 mg PO DAILY Cholecalciferol [Vitamin D3 (25 Mcg = 1000 Iu)] 50 mcg PO DAILY Vitamin K2 400 mcg PO DAILY Potassium Gluconate [Potassium Gluconate ER] 99 mg PO DAILY Magnesium 250 mg PO DAILY Discharge Medication List flaxseed oiL [Flaxseed Oil] 1,000 mg PO DAILY 04/08/20 [History] Cholecalciferol [Vitamin D3 (25 Mcg = 1000 Iu)] 50 mcg PO DAILY 08/11/22 [History] Magnesium 250 mg PO DAILY 08/11/22 [History] Potassium Gluconate [Potassium Gluconate ER] 99 mg PO DAILY 08/11/22 [History] Vitamin K2 400 mcg PO DAILY 08/11/22 [History] Zinc Gluconate [Zinc] 50 mg PO DAILY 08/11/22 [History] Amiodarone [Cordarone] 400 mg PO BID 10 Days #20 tab 08/13/22 [Rx] Aspirin 81 mg PO DAILY tab 08/13/22 [Rx] Metoprolol Succinate (ER) [Toprol XL] 25 mg PO DAILY 30 Days #30 tab 08/13/22 [Rx] Follow up Appointment(s)/Referral(s): None,Stated [REFERRING] - 1-2 days Ronni Kerr MD [STAFF PHYSICIAN] - 3 Days Discharge Disposition: HOME SELF-CARE
== END 2022-08-13 14:40 | disposition home or self-care (01) | DRG 309 ==
LOC: EC 09:51 → 3SCARD 10:52
PROVIDERS: ADMIT Hospitalist; ATTEND Hospitalist
DX: I47.20 Ventricular tachycardia, unspecified (principal); I42.9 Cardiomyopathy, unspecified; I45.10 Unspecified right bundle-branch block; I44.0 Atrioventricular block, first degree; I11.9 Hypertensive heart disease without heart failure; I25.10 Atherosclerotic heart disease of native coronary artery without angina pectoris; R77.8 Other specified abnormalities of plasma proteins; G47.30 Sleep apnea, unspecified; I35.0 Nonrheumatic aortic (valve) stenosis; Z95.2 Presence of prosthetic heart valve; Z79.899 Other long term (current) drug therapy; Z79.82 Long term (current) use of aspirin; Z88.2 Allergy status to sulfonamides; Z88.5 Allergy status to narcotic agent; Z91.199 Patient's noncompliance with other medical treatment and regimen due to unspecified reason; Z86.79 Personal history of other diseases of the circulatory system
CPT/HCPCS: 36415; 71045; 80048; 80053; 80061; 83735; 84443; 84484; 85025; 85610; 85730; 93005; 93306; 94760; 96365; 96366; 99291

== ENCOUNTER 2023-07-18 14:08 | Observation (INO) | payer BC ==
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
[2023-07-18 14:49] LABS: HCT 51.4 % (39.0-53.0); MCH 32.2 pg (25.0-35.0); MCHC 34.9 g/dL (31.0-37.0); MCV 92.3 fL (80.0-100.0); Mean Platelet Volume 9.2; Platelet Count 210 k/uL (150-450); RBC 5.57 m/uL (4.30-5.90); RDW 11.8 % (11.5-15.5); WBC 8.5 k/uL (3.8-10.6)
[2023-07-18] MEDS: MAGNESIUM SULFATE-D5W PMX 1 GM in DEXTROSE/WATER 1 100ML.BAG IVPB SCH ×2 (15:37→16:53)
--- NOTE | 2023-07-18 15:52 | XR ---
EXAMINATION TYPE: XR chest 2V DATE OF EXAM: 07/18/2023 COMPARISON: 08/11/2022 INDICATION: Lightheaded palpitations TECHNIQUE: Frontal and lateral views of the chest are obtained. FINDINGS: The heart size is normal. The pulmonary vasculature is normal. The lungs are clear. IMPRESSION: 1. No acute pulmonary process.
[2023-07-18 16:35] LABS: ALT 41 U/L (4-49); AST 35 U/L (17-59); African American GFR (CKD) >90 (>60 ml/min/1.73 sqM); Albumin 4.3 g/dL (3.5-5.0); Alkaline Phosphatase 71 U/L (38-126); Anion Gap 15 mmol/L; Blood Urea Nitrogen 15 mg/dL (9-20); Calcium 9.3 mg/dL (8.4-10.2); Carbon Dioxide 18 mmol/L (22-30); Chloride 104 mmol/L (98-107); Glucose 125 mg/dL (74-99); Magnesium 1.6 mg/dL (1.6-2.3); Non-African American GFR(CKD) >90 (>60 ml/min/1.73 sqM); Phosphorus 2.1 mg/dL (2.5-4.5); Potassium 3.7 mmol/L (3.5-5.1); Sodium 137 mmol/L (137-145); Total Bilirubin 0.8 mg/dL (0.2-1.3); Total Protein 7.1 g/dL (6.3-8.2)
[2023-07-18 16:43] LABS: NT-Pro-B-Type Natriuretic Pept 223 pg/mL
[2023-07-18] MEDS ORDERED: NALOXONE 0.4 MG/ML 1 ML VIAL IV PRN (18:26)
[2023-07-18] MEDS ORDERED: ACETAMINOPHEN TAB 325 MG TAB PO PRN (18:26)
[2023-07-18] MEDS ORDERED: METOPROLOL SUCCINATE (ER) 50 MG TAB.ER.24H PO SCH (21:00)
[2023-07-19] MEDS ORDERED: POTASSIUM CHLORIDE ER 20 MEQ TAB.ER PO STA (08:34)
[2023-07-19] MEDS: AMIODARONE 200 MG TAB PO SCH ×2 (09:00→20:59)
[2023-07-19] MEDS: METOPROLOL TARTRATE 25 MG TAB PO SCH ×3 (09:00→20:59)
[2023-07-19] MEDS: ASPIRIN 81 MG PO SCH (09:01)
[2023-07-19] MEDS: MAGNESIUM SULFATE-D5W PMX 1 GM in DEXTROSE/WATER 1 100ML.BAG IVPB SCH ×2 (09:01→10:17)
--- NOTE | 2023-07-19 11:21 | CONS ---
CONSULTATION HISTORY OF PRESENT ILLNESS: This is a 57-year-old gentleman with a bicuspid aortic valve, no significant CAD who underwent in June of 2020, a Ross procedure for bicuspid aortic valve and severe stenosis. This was performed at [facility] by Dr. Macdonald. His own pulmonary valve was switched to the aortic position and he had an allograft to the pulmonary valve. Since then, he has done well. He has not been very consistent in following up with Dr. Monahan whom he sees as a primary honey producer. However, the last visit was on July 03. He refused all medications. He was having palpitations, episodes of ventricular tachycardia. An event monitor was placed. Yesterday around 12 noon, he had recurrent episodes of palpitations, felt dizzy, lightheaded, called the EMS and came into the hospital. On the event monitor, there was a 4-beat run of PVC which was the maximum but he had several short episodes of PVCs almost in a couplet and triplet fashion. Almost all of these PVCs were symptomatic for the patient. He is here with some anxiety. He felt clammy and cold and concerned. He is hemodynamically stable, resting comfortably at the time of my evaluation. PAST MEDICAL HISTORY: 1. Bicuspid aortic valve, status post Ross procedure in 2027 at [facility]. 2. Hypertension. 3. Known history of ventricular ectopy for which he was placed on amiodarone, but he has not been, he stopped it on his own and has not been very compliant with followup, but the last visit, however, was on July 03 in the office. I reviewed the rhythm strips from the event monitor. He has only a 4-beat run of PVC but the density of PVCs isolated and the couplets were quite frequent. Apparently he had been on beta maria isabel and amiodarone and he was being tapered of the amiodarone when he started having these episodes again. This is almost 3 to 4 months. PHYSICAL EXAMINATION: VITAL SIGNS: Blood pressure is 130/70, pulse rate is 64 per minute and regular. HEENT: Unremarkable. Fundus was not examined by me. NECK: Supple. There is no JVD. I do not hear a carotid bruit. HEART: Reveals S1, S2. There is a short systolic murmur at the base and early DM at upper LSB. Second heart sound is preserved. LUNGS: Clear. ABDOMEN: Soft, nontender. EXTREMITIES: Lower extremities reveal normal pulses. No edema. CENTRAL NERVOUS SYSTEM: Normal. DIAGNOSTIC DATA: EKG revealed sinus mechanism, leftward axis, nonspecific ST abnormality. Rhythm strip review suggests isolated PVCs. The chest x-ray is unremarkable. IMPRESSION: 1. Symptomatic ventricular ectopy, short runs of nonsustained ventricular tachycardia. 2. Status post aortic valve replacement for bicuspid valve with a Ross procedure at [facility] 3 years ago. 3. Hypertension. 4. History of hyperlipidemia. RECOMMENDATIONS: I am recommending that we will place him on a combination of beta maria isabel and amiodarone that has helped him in the past and check magnesium and potassium level and supplement electrolytes. Obtain a limited echocardiogram. We will place him on amiodarone 400 mg b.i.d. for 1 week and then taper to 200 mg b.i.d., metoprolol tartrate will be 12.5 mg t.i.d. We will check at 4 p.m., his BMP and magnesium level. Discussed my thoughts in detail with the patient. We will talk to Dr. Monahan. The patient can be discharged tomorrow if his ectopy is better and he is doing well for 24 hours without significant ventricular ectopic beats. MMODL / IJN: [id number] / MTDD
--- NOTE | 2023-07-19 12:27 | P.HPIM ---
History of Present Illness H&P Date: 07/19/23 Chief Complaint: Dizziness * 57-year-old gentleman with past medical history of hypertension, previous history of ventricular tachycardia amiodarone, history of aortic stenosis bicuspid aortic valve status post Ross procedure 2019, nonocclusive coronary artery disease, hypertension with presents to the emergency department with episode of dizziness. * Patient complained of episode of palpitations ongoing for 4 weeks. Patient denies losing consciousness * Workup initiated in ER included an EKG which showed sinus rhythm with PVC * Serum chemistry obtained showed normal WBC hemoglobin of 15 platelet count of 210, sodium of 137 potassium 3.7 carbon dioxide 18 BUNs 15 creatinine 0.7 magnesium of 1.6 * Initial troponin obtained within normal limits N-terminal proBNP 223 * Patient admitted to medical floor with consultation from cardiology and echocardiogram ordered REVIEW OF SYSTEMS: Lightheadedness, dizzy CONSTITUTIONAL: No fever, no malaise, no fatigue. HEENT: No recent visual problems or hearing problems. Denied any sore throat. CARDIOVASCULAR: No chest pain, orthopnea, PND, no palpitations, no syncope. PULMONARY: No shortness of breath, no cough, no hemoptysis. GASTROINTESTINAL: No diarrhea, no nausea, no vomiting, no abdominal pain. NEUROLOGICAL: No headaches, no weakness, no numbness. HEMATOLOGICAL: Denies any bleeding or petechiae. GENITOURINARY: Denies any burning micturition, frequency, or urgency. MUSCULOSKELETAL/RHEUMATOLOGICAL: Denies any joint pain, swelling, or any muscle pain. ENDOCRINE: Denies any polyuria or polydipsia. PHYSICAL EXAMINATION: GENERAL: The patient is alert and oriented x3, not in any acute distress. Well developed, well nourished. HEENT: Pupils are round and equally reacting to light. EOMI. CARDIOVASCULAR: S1 and S2 present. No murmurs, rubs, or gallops. PULMONARY: Chest is clear to auscultation, no wheezing or crackles. ABDOMEN: Soft, nontender, nondistended, normoactive bowel sounds. No palpable organomegaly. MUSCULOSKELETAL: No joint swelling or deformity. EXTREMITIES: No cyanosis, clubbing, or pedal edema. NEUROLOGICAL: Gross neurological examination did not reveal any focal deficits. SKIN: No rashes. Past Medical History Past Medical History: Hypertension, Sleep Apnea/CPAP/BIPAP Additional Past Medical History / Comment(s): STATES DOES NOT USE CPAP, STATES HX OF BICUSPID AORTIC VALVE, MURMUR History of Any Multi-Drug Resistant Organisms: None Reported Past Surgical History: Adenoidectomy, Back Surgery Additional Past Surgical History / Comment(s): YOHANA AND SCREWS IN BACK, hernia surgery Past Anesthesia/Blood Transfusion Reactions: Postoperative Nausea & Vomiting (PONV) Past Psychological History: No Psychological Hx Reported Smoking Status: Never smoker Past Alcohol Use History: None Reported Past Drug Use History: None Reported - Past Family History Mother Family Medical History: No Reported History Medications and Allergies Home Medications Medication Instructions Recorded Confirmed Type Aspirin 81 mg PO DAILY tab 08/13/22 07/18/23 Rx Allergies Allergy/AdvReac Type Severity Reaction Status Date / Time codeine AdvReac Nausea & Verified 07/18/23 17:05 Vomiting Sulfa (Sulfonamide AdvReac Itching/Nausea Verified 07/18/23 17:05 Antibiotics) & Vomiting Physical Exam Vitals: Vital Signs Temp Pulse Pulse Resp BP BP Pulse Ox 07/19/23 07:00 98.3 F 69 18 149/78 98 07/19/23 04:00 60 16 136/75 99 07/19/23 00:00 98.5 F 07/18/23 23:00 81 18 137/76 97 07/18/23 21:00 84 18 156/78 99 07/18/23 20:00 99.9 F H 07/18/23 15:30 76 07/18/23 14:48 98.9 F 94 18 170/78 100 Results CBC & Chem 7: 07/18/23 14:40 07/18/23 16:06 Labs: Abnormal Lab Results - Last 24 Hours (Table) 07/18/23 07/18/23 Range/Units 14:40 16:06 Hgb 18.0 H (13.0-17.5) gm/dL Carbon Dioxide 18 L (22-30) mmol/L Glucose 125 H (74-99) mg/dL Phosphorus 2.1 L (2.5-4.5) mg/dL Assessment and Plan Assessment: Assessment and plan History of cardiac arrhythmia with dizziness on admission History of aortic stenosis status post ROSS procedure w bicuspid aortic valve Nonocclusive coronary artery disease Hypertension * In regards to dizziness and palpitations, cardiology consulted continue telemetry monitoring continue to monitor potassium and magnesium levels, echocardiogram ordered * In regards to history of hypertension continue patient on metoprolol * Will check for orthostatic vitals * Follow up on basic metabolic panel, optimize electrolytes potassium and magnesium * Continue telemetry monitoring * CODE STATUS is full code
--- NOTE | 2023-07-19 12:33 | CA ---
Transthoracic Echo Report Name: Rowdy Turner Age: 57 Gender: M : 1965 Exam Date: 07/19/2023 09:20 Exam Location: [facility] Ht (in): 72 Wt (lb): 215 Ordering Physician: Jami Rosa Attending/Referring Phys: Obiee Architect Sherry Paulino RDCS Procedure CPT: Indications: v. tach Cardiac Hx: Technical Quality: Fair Contrast 1: Total Dose (mL): Contrast 2: Total Dose (mL): MEASUREMENTS (Male / Female) Normal Values 2D ECHO LV Diastolic Diameter PLAX 4.8 cm 4.2 - 5.9 / 3.9 - 5.3 cm LV Systolic Diameter PLAX 3.4 cm IVS Diastolic Thickness 1.3 cm 0.6 - 1.0 / 0.6 - 0.9 cm LVPW Diastolic Thickness 1.4 cm 0.6 - 1.0 / 0.6 - 0.9 cm LV Relative Wall Thickness 0.6 RV Internal Dim ED PLAX 3.1 cm LA Volume 61.8 cm??? 18 - 58 / 22 - 52 cm??? LA Volume Index 27.5 cm???/m??? 16 - 28 cm???/m??? M-MODE Aortic Root Diameter MM 2.7 cm LA Systolic Diameter MM 4.7 cm LA Ao Ratio MM 1.7 DOPPLER AV Peak Velocity 136.4 cm/s AV Peak Gradient 7.4 mmHg AV Mean Velocity 92.7 cm/s AV Mean Gradient 3.9 mmHg AV Velocity Time Integral 27.7 cm AI Peak Velocity 318.2 cm/s AI Peak Gradient 40.5 mmHg AI Pressure Half Time 470.9 ms LVOT Peak Velocity 116.6 cm/s LVOT Peak Gradient 5.4 mmHg LVOT Velocity Time Integral 21.8 cm MV Area PHT 2.5 cm??? Mitral E Point Velocity 92.2 cm/s Mitral A Point Velocity 69.4 cm/s Mitral E to A Ratio 1.3 MV Deceleration Time 306.2 ms MV E' Velocity 8.6 cm/s Mitral E to MV E' Ratio 10.7 TR Peak Velocity 191.0 cm/s TR Peak Gradient 14.6 mmHg Right Ventricular Systolic Press 19.3 mmHg PV Peak Velocity 149.4 cm/s PV Peak Gradient 8.9 mmHg PV Mean Velocity 106.4 cm/s PV Mean Gradient 5.1 mmHg PV Velocity Time Integral 30.4 cm FINDINGS Left Ventricle Mildly increased left ventricular wall thickness. Left ventricular cavity size normal. Normal left ventricular systolic function with no obvious regional wall motion abnormalities. Abnormal (paradoxical) septal motion consistent with postoperative state. Left ventricular ejection fraction is estimated at 55-60 %. Right Ventricle Normal right ventricular size and function. Right ventricular systolic pressure within normal limits. Right Atrium Normal right atrial size. Left Atrium Mildly increased left atrial volume. Mitral Valve Structurally normal mitral valve. Mild mitral regurgitation. Aortic Valve S/P Ross procedure (2019), no aortic stenosis. Mild aortic regurgitation. AV peak velocity 1.3 m/s, AV peakgradient 7.4mmHg and mean pressure gradient is 3.9 mmHg. Tricuspid Valve Structurally normal tricuspid valve. Mild tricuspid regurgitation. Pulmonic Valve Physiologic regurgitation of the prosthetic pulmonic valve. Prosthetic pulmonic valve appears to be functioning normally. Pericardium No pericardial effusion. Aorta Normal size aortic root and proximal ascending aorta. CONCLUSIONS Normal LV size and systolic function with mild concentric LVH. Patient has a had a Ross procedure for bicuspid aortic valve. Aortic valve appears. There is only mild aortic insufficiency no significant gradient. Pulmonary valve is not well-seen. No pericardial effusion. No pulmonary hypertension Previewed by: Dr. Inocencia Hensley MD (Electronically Signed) Final Date: 19 July 2023 12:32
[2023-07-19 16:16] LABS: Potassium 4.2 mmol/L (3.5-5.1)
[2023-07-20 08:43] VITALS: BP 128/80; PULSE 54; RESP 16; TEMP 97.8
[2023-07-20] MEDS: ASPIRIN 81 MG PO SCH (09:00)
[2023-07-20] MEDS: METOPROLOL TARTRATE 25 MG TAB PO SCH (09:00)
[2023-07-20] MEDS: AMIODARONE 200 MG TAB PO SCH (09:00)
[2023-07-20] MEDS ORDERED: ENOXAPARIN 40 MG/0.4 ML SYRINGE SQ SCH (09:00)
--- NOTE | 2023-07-20 10:25 | P.PN ---
Subjective Progress Note Date: 07/20/23 History of present illness: This is a 57-year-old male patient of Dr. Monahan with past medical history of bi cuspid aortic valve, no significant coronary artery disease, status post Ross procedure for bicuspid aortic valve and severe stenosis performed at [facility]. His own pulmonary valve was switched to the aortic position and he had an allograft to the pulmonary valve. Patient was having palpitations at his last office visit with episodes of ventricular tachycardia. Event monitor was p laced. Patient hasn't recurrent episodes of palpitations, dizziness, lightheadedness and called EMS came in the hospital. Event monitor showed 4 beat run of PVC which was submaximal but he had several short episodes almost and a couplet and triplet fashion. Echocardiogram reveals normal LV size and systolic function with mild concentric left ventricular hypertrophy. Ross procedure for bicuspid aortic valve. Aortic valve only mild aortic insufficiency, no significant gradient. Pulmonary valve is not well seen. No pericardial effusion. No pulmonary hypertension. No significant arrhythmias on telemetry over the past 24 hours. Patient denies having any symptoms of lightheadedness, dizziness, palpitations. Heart rate is in the 60s, blood pressure 145/75. Patient is status post magnesium 2 g yesterday. Repeat blood work this morning reveals Physical examination: Gen: This is a 57-year-old male. He is resting in bed appears to be comfortable. No acute distress. VS: reviewed HEENT: Head is atraumatic, normocephalic. Pupils equal, round. Sclerae is anicteric. LUNGS: Clear to auscultation. No wheezes or rhonchi. No intercostal retractions. HEART: Regular rate and rhythm. Short systolic murmur at the base and early diastolic murmur at upper left sternal border. EXTREMITIES: No pedal edema. No calf tenderness. NEUROLOGICAL: Patient is awake, alert and oriented x3. Assessment: Symptomatic ventricular ectopy with short runs of nonsustained ventricular tachy cardia Status post aortic valve replacement for bicuspid valve with a Ross procedure at [facility] 3 years ago Hypertension Hyperlipidemia Plan: Patient is to continue on amiodarone 400 mg twice daily for 1 week and then 200 mg twice daily and Lopressor 12.5 mg 3 times daily. Prescriptions have been sent to his pharmacy. Patient is clear for discharge from cardiology will follow up with Dr. Monahan in one week. Nurse practitioner note has been reviewed, I agree with documented findings and plan of care. Patient was seen and examined. Objective - Vital Signs Vital signs: Vital Signs Temp 97.8 F 07/20/23 07:00 Pulse 54 L 07/20/23 07:00 Resp 16 07/20/23 07:00 BP 128/80 07/20/23 07:00 Pulse Ox 100 07/20/23 07:00 FiO2 Intake & Output 07/19/23 07/20/23 07/20/23 18:59 06:59 18:59 Intake Total 480 Balance 480 Weight 113.398 kg Intake: Oral 480 Other: Voiding Method Toilet Toilet # Voids 3 2 - Labs CBC & Chem 7: 07/18/23 14:40 07/20/23 06:05 Labs: Abnormal Lab Results - Last 24 Hours (Table) 07/19/23 Range/Units 15:25 Carbon Dioxide 20 L (22-30) mmol/L
[2023-07-20 11:18] LABS: Blood Urea Nitrogen 19.5 mg/dL (9.0-27.0); Calcium 9.3 mg/dL (8.7-10.3); Carbon Dioxide 21.1 mmol/L (21.6-31.8); Chloride 106 mmol/L (96-109); Glucose 118 mg/dL (70-110); Magnesium 2.1 mg/dL (1.5-2.4); Potassium 4.5 mmol/L (3.5-5.5); Sodium 137 mmol/L (135-145)
--- NOTE | 2023-07-20 13:16 | P.DS ---
Providers Date of admission: 07/18/23 18:30 Expected date of discharge: 07/20/23 Attending physician: Renea Herrera Consults: 07/18/23 18:26 Consult Physician Stat Consulting Provider: [facility] Consult Reason/Comments: ventricular tachycardia Do you want consulting provider notified?: Yes Primary care physician: Lula Michelle [place] [facility] Course: * 57-year-old gentleman with past medical history of hypertension, previous history of ventricular tachycardia amiodarone, history of aortic stenosis bicuspid aortic valve status post Ross procedure 2019, nonocclusive coronary artery disease, hypertension with presents to the emergency department with episode of dizziness. * Patient complained of episode of palpitations ongoing for 4 weeks. Patient denies losing consciousness * Workup initiated in ER included an EKG which showed sinus rhythm with PVC * Serum chemistry obtained showed normal WBC hemoglobin of 15 platelet count of 210, sodium of 137 potassium 3.7 carbon dioxide 18 BUNs 15 creatinine 0.7 magnesium of 1.6 * Initial troponin obtained within normal limits N-terminal proBNP 223 * Patient admitted to medical floor with consultation from cardiology and echo cardiogram ordered * 07/20: Patient seen and evaluated bedside, follow-up blood work reviewed potassium and magnesium within normal limits patient was started on amiodarone as well as metoprolol by cardiology with plan for outpatient follow-up. Echocardiogram completed and reviewed preserved ejection fraction will need outpatient follow-up with cardiology K plan discussed with patient echocardiogram findings discussed with patient heart rate ranging between 60- 70. Patient remains asymptomatic plan to discharge home with plans to follow- up outpatient with cardiology.Potassium 4.5 and magnesium 2.1. Serial troponins obtained at remain negative PHYSICAL EXAMINATION: GENERAL: The patient is alert and oriented x3, not in any acute distress. Well developed, well nourished. HEENT: Pupils are round and equally reacting to light. EOMI. CARDIOVASCULAR: S1 and S2 present. No murmurs, rubs, or gallops. Event monitor noted PULMONARY: Chest is clear to auscultation, no wheezing or crackles. ABDOMEN: Soft, nontender, nondistended, normoactive bowel sounds. No palpable organomegaly. MUSCULOSKELETAL: No joint swelling or deformity. EXTREMITIES: No cyanosis, clubbing, or pedal edema. NEUROLOGICAL: Gross neurological examination did not reveal any focal deficits. SKIN: No rashes. Assessment: Assessment and plan Nonsustained V. tach, symptomatic ventricular ectopy History of aortic stenosis status post ROSS procedure w bicuspid aortic valve Nonocclusive coronary artery disease Hypertension * In regards to dizziness and palpitations, cardiology consulted /patient was placed on telemetry monitoring/continue metoprolol and amiodarone/outpatient follow-up with cardiology electrolytes optimize/potassium and magnesium within normal limits. Continue metoprolol and amiodarone post discharge * In regards to history of hypertension continue patient on metoprolol * Prostatic vitals negative * Follow up on basic metabolic panel, optimize electrolytes potassium and magnesium * Continue vent monitor/outpatient follow-up with cardiology Patient Condition at Discharge: Stable Plan - Discharge Summary New Discharge Prescriptions: New Amiodarone [Cordarone] 400 mg PO BID #35 tablet Metoprolol Tartrate [Lopressor] 12.5 mg PO TID 30 Days #90 tablet Continue Aspirin 81 mg PO DAILY tab Discharge Medication List Aspirin 81 mg PO DAILY tab 08/13/22 [Rx] Amiodarone [Cordarone] 400 mg PO BID #35 tablet 07/20/23 [Rx] Metoprolol Tartrate [Lopressor] 12.5 mg PO TID 30 Days #90 tablet 07/20/23 [Rx] Follow up Appointment(s)/Referral(s): Shawn Monahan MD [STAFF PHYSICIAN] - 08/03/23 11:30 am (appointment made at the main office ) Lula Martinez DO [Primary Care Provider] - 1-2 days Patient Instructions/Handouts: Heart Palpitations (DC), Hypertension (DC) Discharge Disposition: HOME SELF-CARE
== END 2023-07-20 13:45 | disposition home or self-care (01) ==
LOC: EC 14:08 → 6NMEDSUR 18:30
PROVIDERS: ADMIT Hospitalist; ATTEND Hospitalist
DX: I47.20 Ventricular tachycardia, unspecified (principal); Q23.1 Congenital insufficiency of aortic valve; I10 Essential (primary) hypertension; G47.30 Sleep apnea, unspecified; E78.5 Hyperlipidemia, unspecified; I25.10 Atherosclerotic heart disease of native coronary artery without angina pectoris; Z95.2 Presence of prosthetic heart valve; Z79.82 Long term (current) use of aspirin; Z88.2 Allergy status to sulfonamides; Z88.5 Allergy status to narcotic agent
CPT/HCPCS: 96366 ×2; 96365; 99285; 36415; 93005; 93306; 83880; 80051; 80053; 80048; 83735 ×2; 84100; 84484 ×2; 85027; 71046; G0378 ×3; J3475 ×2